=== PATIENT | female | born 1975 | race Caucasian/White ===

== ENCOUNTER 2020-06-09 04:15 | Emergency (ER) | payer BC ==
[2020-06-09] MEDS ORDERED: [UNRECOGNIZED DRUG - OTHER] (04:48)
[2020-06-09] MEDS ORDERED: ZITHROMAX250 MG PO (05:50)
[2020-06-09 06:00] VITALS: BP 119/64
== END 2020-06-09 06:00 | disposition home or self-care (01) | DRG 179 ==
LOC: ED 04:15
DX: U07.1 COVID-19 (principal); J02.0 Streptococcal pharyngitis